=== PATIENT | female | born 1990 | race African-American/Black ===

== ENCOUNTER 2018-12-11 17:26 | Emergency (ER) | payer OTHER ==
[~2018-12-11] VITALS: Ht 157.5 cm; Wt 50.8 kg
[2018-12-11 17:40] VITALS: BP_SYST 136
--- NOTE | 2018-12-11 17:40 | NUR ---
Patient triaged and placed in waiting room. VSS and patient appears in no acute distress at this time. Accompanied by friend , awaiting available bed, and MD notified of need for MSE.report given to Doug LYONS
--- NOTE | 2018-12-11 20:20 | NUR ---
Patient to ER bed 6 to gown for evaluation. Side rails up. Report given to SERENA Talavera.
[2018-12-11] MEDS ORDERED: LIDOCAINE 1% 10 MG/ML, 20 ML MDV IJ ONE (20:30)
[2018-12-11] MEDS ORDERED: DIPH-TET-PERTUS Vaccine 0.5 ML VIAL (ADACEL) IM ONE (20:30)
[2018-12-11] MEDS ORDERED: BACITRACIN 1 GM OINT TP ONE (20:30)
--- NOTE | 2018-12-11 20:30 | NUR ---
Pt C/O Laceration to her Lt index finger. Pt states she accidently cut herself while using a knife. Bleeding is controlled and pt is C/O pain to the finger. Pt denies any other symptoms at this time. Vital signs are stable, will continue to monitor.
--- NOTE | 2018-12-11 20:32 | NUR ---
ER Dr. Suggs at bedside examining patient.
--- NOTE | 2018-12-11 20:35 | NUR ---
Dr. Suggs administered Lidocaine to patient's laceration prior to suture proceedure
[2018-12-11] MEDS ORDERED: LIDOCAINE 1%, 20 ML MDV 20 ML ONE (20:39)
--- NOTE | 2018-12-11 20:40 | NUR ---
Patient has a 1.5 cm laceration to Left Index finger. Dr. Suggs applied sutures using sterile technique. Edges well approximated. Site cleansed with NS and Iodine. Bacitracin applied to site. No bleeding noted. Pt tolerated well.
[2018-12-11 21:23] VITALS: BP_SYST 136
--- NOTE | 2018-12-11 21:23 | NUR ---
Patient given written and verbal discharge instructions and verbalizes understanding. ER MD discussed with patient the results and treatment provided. Patient in stable condition. ID arm band removed. Rx of Tylenol given. Patient educated on pain management and to follow up with PMD. Pain Scale 0/10. Opportunity for questions provided and answered. Medication side effect fact sheet provided.
== END 2018-12-11 21:23 | disposition home or self-care (01) ==
LOC: SED 17:26
DX: S61.211A Laceration without foreign body of left index finger without damage to nail, initial encounter (principal); W26.0XXA Contact with knife, initial encounter; Y93.89 Activity, other specified; Y92.89 Other specified places as the place of occurrence of the external cause; Y99.8 Other external cause status
CPT/HCPCS: 12001; 90471; 90715; 99283; J2001

== ENCOUNTER 2018-12-14 13:50 | Emergency (ER) | payer OTHER ==
[~2018-12-14] VITALS: Ht 162.6 cm; Wt 49.0 kg
[2018-12-14 14:00] VITALS: BP_SYST 117
[2018-12-14] MEDS ORDERED: BACITRACIN 1 GM OINT TP ONE (14:15)
[2018-12-14 14:50] VITALS: BP_SYST 123
== END 2018-12-14 14:50 | disposition home or self-care (01) ==
LOC: SED 13:50
DX: S61.211D Laceration without foreign body of left index finger without damage to nail, subsequent encounter (principal); R03.0 Elevated blood-pressure reading, without diagnosis of hypertension; W26.0XXD Contact with knife, subsequent encounter
CPT/HCPCS: 99283